=== PATIENT | male | born 1990 | race Caucasian/White ===

== ENCOUNTER 2022-08-30 13:24 | Emergency (ER) | payer BC ==
[~2022-08-30] VITALS: Ht 182.9 cm; Wt 160.6 kg
[2022-08-30 13:29] VITALS: BP 142/81
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
[2022-08-30] MEDS ORDERED: IBUP-2213 PO (14:57)
[2022-08-30] MEDS ORDERED: ACET-10509 PO (14:57)
--- NOTE | 2022-08-30 15:16 | NUR ---
Patient discharged with v/s stable. Written and verbal after care instructions ABOUT CONCUSSION, CERVICAL STRAIN given and explained. Patient alert, oriented and verbalized understanding of instructions. Ambulatory with steady gait. All questions addressed prior to discharge. ID band removed. Patient advised to follow up with PMD. Rx of MOTRIN AND TYLENOL given. Patient educated on indication of medication including possible reaction and side effects. Opportunity to ask questions provided and answered.
== END 2022-08-30 15:16 | disposition home or self-care (01) ==
LOC: MED 13:24
DX: S16.1XXA Strain of muscle, fascia and tendon at neck level, initial encounter (principal); S39.012A Strain of muscle, fascia and tendon of lower back, initial encounter; S06.0X0A Concussion without loss of consciousness, initial encounter; V49.88XA Car occupant (driver) (passenger) injured in other specified transport accidents, initial encounter; Y93.89 Activity, other specified; Y92.89 Other specified places as the place of occurrence of the external cause; Y99.8 Other external cause status
CPT/HCPCS: 99282